=== PATIENT | female | born 1995 | race Asian ===

== ENCOUNTER 2016-09-26 10:36 | Emergency (ER) | payer OTHER ==
[2016-09-26 10:41] VITALS: RESP 16
[2016-09-26] MEDS ORDERED: PANTOPRAZOLE SODIUM 40 MG in NS 100 ML IV ONE (11:56)
[2016-09-26] MEDS ORDERED: ONDANSETRON 4 MG/2 ML VIAL IVP ONE (11:56)
[2016-09-26] MEDS ORDERED: NS 1,000 ML IV ONE (11:56)
[2016-09-26 12:07] LABS: % IMMATURE GRANULYOCYTES 0.5 % (0.0-1.1); ABSOLUTE IMMATURE GRANULOCYTES 0.03 10^3/uL (0.00-0.10); ADD DIFF? NO; ADD MORPH? NO; ADD SCAN? NO; ATYPICAL LYMPHOCYTE FLAG 20 (0-99); FRAGMENT RBC FLAG 0 (0-99); HEMATOCRIT 40.2 % (38.0-47.0); HEMOGLOBIN 12.8 g/dL (12.6-16.3); LEFT SHIFT FLG 0 (0-99); LIPEMIA HEMOLYSIS FLAG 80 (0-99); MEAN CELL HEMOGLOBIN CONCENTR. 31.8 g/dL (32.4-36.7); MEAN CELL VOLUME 78.5 fL (81.5-99.8); MEAN PLATELET VOLUME 9.9 fL (8.7-11.7); PLATELET CLUMPS FLAG 0 (0-99); PLATELET COUNT 223 10^3/uL (150-400); RED BLOOD CELL COUNT 5.12 10^6/uL (4.18-5.33)
[2016-09-26 12:18] LABS: ANION GAP 11 mEq/L (8-16); CALCIUM 9.5 mg/dL (8.5-10.4); CARBON DIOXIDE 22 mEq/l (22-31); CHLORIDE 107 mEq/L (97-110); CREATININE 0.6 mg/dL (0.6-1.0); GLOMERULAR FILTRATION RATE > 60; GLUCOSE 89 mg/dL (70-100); POTASSIUM 3.8 mEq/L (3.5-5.2); SODIUM 140 mEq/L (134-144)
--- NOTE | 2016-09-26 13:22 | EDPHY ---
H & P Time Seen by Provider: 09/26/16 11:44 HPI/ROS: CHIEF COMPLAINT: Vomiting, abnormal vaginal bleeding HISTORY OF PRESENT ILLNESS: 21-year-old female presents to the emergency department with multiple episodes of vomiting over last 2 days. She has had abnormal vaginal bleeding over the last 1 month. She has had mostly spotting throughout the month and then over last few days has had very heavy vaginal bleeding. She has always had irregular periods. No fevers or chills. No urinary symptoms. She is not sexually active. Denies . Denies chest pain or difficulty breathing. No diarrhea. No recent travel. No known ill contacts. REVIEW OF SYSTEMS: Constitutional: No fever, no chills. Eyes: No double or blurry vision. ENT: No sore throat. Respiratory: No cough, no shortness of breath. Cardiac: No chest pain. Gastrointestinal: Vomiting. No abdominal pain or diarrhea Genitourinary: No dysuria. Musculoskeletal: No neck or back pain. Skin: No rashes. Neurological: No headache. Past Medical/Surgical History: Dysfunctional uterine bleeding Social History: Single Smoking Status: Current every day smoker Physical Exam: General Appearance: Alert, no distress. Vital signs are normal. Eyes: Pupils equal and round. Extraocular motions are all intact. ENT: Mouth: Mucous membranes moist. Respiratory: No wheezing, rhonchi, or rales, lungs are clear to auscultation. Cardiovascular: Regular rate and rhythm. Gastrointestinal: Abdomen is soft and nontender, no masses, no rebound or guarding, bowel sounds normal. Genitourinary: Deferred Neurological: Alert and oriented x 3, cranial nerves II through XII grossly intact Skin: Warm and dry, no rashes. Musculoskeletal: Nontender to palpate along the cervical, thoracic or lumbar spine. Neck is supple. Extremities: Full range of motion and no peripheral edema. Psychiatric: Patient is oriented X 3, there is no agitation. Constitutional: Initial Vital Signs Temperature (C) 36.6 C 09/26/16 10:40 Heart Rate 72 09/26/16 10:40 Respiratory Rate 16 09/26/16 10:40 Blood Pressure 116/70 09/26/16 10:40 O2 Sat (%) 96 09/26/16 10:40 O2 Delivery Mode Room Air Allergies/Adverse Reactions: No Known Allergies Allergy (Unverified 09/26/16 10:41) Home Medications: Medication Instructions Recorded Ondansetron Odt [Zofran Odt] 4 mg PO Q4PRN PRN #5 tab 09/26/16 Medical Decision Making - Diagnostics Imaging Results: Imaging Impressions Pelvic/Renal Ultrasound 09/26/16 11:57 Impression: 1. No adnexal masses or ovarian torsion. 2. No ascites. 3. Anteverted uterus with endometrium not well visualized. However, no evidence of uterine leiomyomata. Findings and recommendations discussed with Emergency Department physician, Emma Joseph PA-C at 1252 hour, 09/26/2016. Final report concurs with initial preliminary interpretation. Imaging: Discussed imaging studies w/ physically impaired teacher Radiologist ED Course/Re-evaluation: Patient had IV established and was given IV normal saline. Laboratory studies including CBC and chemistries were normal. Pelvic ultrasound essentially normal. Patient was given IV Zofran. Feeling much better. Comfortable being discharged home. She was given OBGYN referral. Instructed to return to the emergency department if she developed recurring vomiting, recurring heavy vaginal bleeding, or if she seems worse in any way. She was comfortable with this plan. Differential Diagnosis: Including but not limited to gastritis, GERD, peptic ulcer disease, dysfunctional uterine bleeding, ectopic , intrauterine , ovarian torsion - Data Points Laboratory Results: Laboratory Results 09/26/16 11:59 09/26/16 11:59 09/26/16 09/26/16 11:59 11:59 WBC 6.32 10^3/uL 10^3/uL (3.80-9.50) RBC 5.12 10^6/uL 10^6/uL (4.18-5.33) Hgb 12.8 g/dL g/dL (12.6-16.3) Hct 40.2 % % (38.0-47.0) MCV 78.5 fL L fL (81.5-99.8) MCH 25.0 pg L pg (27.9-34.1) MCHC 31.8 g/dL L g/dL (32.4-36.7) RDW 14.0 % % (11.5-15.2) Plt Count 223 10^3/uL 10^3/uL (150-400) MPV 9.9 fL fL (8.7-11.7) Neut % (Auto) 59.4 % % (39.3-74.2) Lymph % (Auto) 30.7 % % (15.0-45.0) [place] % (Auto) 7.4 % % (4.5-13.0) Eos % (Auto) 1.4 % % (0.6-7.6) Baso % (Auto) 0.6 % % (0.3-1.7) Nucleat RBC Rel Count 0.0 % % (0.0-0.2) Absolute Neuts (auto) 3.75 10^3/uL 10^3/uL (1.70-6.50) Absolute Lymphs (auto) 1.94 10^3/uL 10^3/uL (1.00-3.00) Absolute Monos (auto) 0.47 10^3/uL 10^3/uL (0.30-0.80) Absolute Eos (auto) 0.09 10^3/uL 10^3/uL (0.03-0.40) Absolute Basos (auto) 0.04 10^3/uL 10^3/uL (0.02-0.10) Absolute Nucleated RBC 0.00 10^3/uL 10^3/uL (0-0.01) Immature Gran % 0.5 % % (0.0-1.1) Immature Gran # 0.03 10^3/uL 10^3/uL (0.00-0.10) Sodium 140 mEq/L mEq/L (134-144) Potassium 3.8 mEq/L mEq/L (3.5-5.2) Chloride 107 mEq/L mEq/L (97-110) Carbon Dioxide 22 mEq/l mEq/l (22-31) Anion Gap 11 mEq/L mEq/L (8-16) BUN 12 mg/dL mg/dL (7-23) Creatinine 0.6 mg/dL mg/dL (0.6-1.0) Estimated GFR > 60 Glucose 89 mg/dL mg/dL (70-100) Calcium 9.5 mg/dL mg/dL (8.5-10.4) Medications Given: Discontinued Medications Sodium Chloride (Ns) 1,000 mls @ 0 mls/hr IV ONCE ONE PRN Reason: Wide Open Stop: 09/26/16 11:57 Last Admin: 09/26/16 12:11 Dose: 1,000 mls Pantoprazole Sodium 40 mg/ (Sodium Chloride) 100 mls @ 200 mls/hr IV EDNOW ONE Stop: 09/26/16 12:25 Last Admin: 09/26/16 12:12 Dose: 100 mls Ondansetron HCl (Zofran) 4 mg IVP EDNOW ONE Stop: 09/26/16 11:57 Last Admin: 09/26/16 12:11 Dose: 4 mg Departure - Departure Disposition: Home, Routine, Self-Care Clinical Impression: Dysfunctional uterine bleeding Vomiting Qualifiers: Vomiting type: unspecified Vomiting Intractability: non-intractable Nausea presence: with nausea Qualified Code(s): R11.2 - Nausea with vomiting, unspecified Condition: Good Instructions: Dysfunctional Uterine Bleeding (ED), Acute Nausea and Vomiting ( ED) Additional Instructions: Clear liquids and slowly advance diet as tolerated. Follow up with OBGYN regarding abnormal vaginal bleeding. Abdominal Pain: Return to the Emergency Department immediately for increasing pain, fever, vomiting, or if not completely better in 8-12 hours. Referrals: Jennifer Carter DO [Doctor of Osteopathy] - 2-3 days, call for appt. (OBGYN on- call) Stand Alone Forms: School Excuse Prescriptions: Ondansetron Odt [Zofran Odt] 4 mg PO Q4PRN PRN #5 tab PRN Reason: Nausea/Vomiting, Use 1st
[2016-09-26 13:50] VITALS: BP 110/73; PULSE 70; TEMP 98.2; O2SAT 97
== END 2016-09-26 13:47 | disposition home or self-care (01) ==
DX: N93.8 Other specified abnormal uterine and vaginal bleeding (principal); R11.2 Nausea with vomiting, unspecified; F17.200 Nicotine dependence, unspecified, uncomplicated
CPT/HCPCS: 96365; J2405

== ENCOUNTER 2016-11-23 16:45 | Emergency (ER) | payer OTHER ==
[2016-11-23 16:51] VITALS: RESP 18; TEMP 98.1
--- NOTE | 2016-11-23 17:33 | EDPHY ---
H & P Time Seen by Provider: 11/23/16 17:04 HPI/ROS: Chief complaint: Left ankle injury History of present illness: This is a 21-year-old female who presents to the emergency department for left ankle injury. Patient states approximately an hour prior to arrival she twisted her left ankle. Since then she has had swelling to the outer aspect of it. Makes it difficult to move and ambulate. She denies associated signs or symptoms including no open wounds, no abnormal coolness or paresthesias in the left lower extremity. No report of pain in the foot, lower leg or knee. Smoking Status: Current every day smoker Physical Exam: General appearance: Alert, nontoxic Musculoskeletal: There is edema to the lateral aspect of the left ankle just anterior to the lateral malleolus. There is no tenderness over the bony aspects of the ankle. The Achilles tendon is is nontender, no defects. The foot, lower leg and knee are nontender. She is moving the digits of the foot and the knee well. Vascular exam: Normal pulses and capillary refill in the foot Neurologic exam: The patient has normal sensation and motor function distal to the injury. Constitutional: Initial Vital Signs Temperature (C) 36.7 C 11/23/16 16:46 Heart Rate 88 11/23/16 16:46 Respiratory Rate 18 11/23/16 16:46 Blood Pressure 113/90 H 11/23/16 16:46 O2 Sat (%) 97 11/23/16 16:46 O2 Delivery Mode Room Air Allergies/Adverse Reactions: No Known Allergies Allergy (Verified 11/23/16 16:46) Home Medications: Medication Instructions Recorded NK [No Known Home Meds] 11/23/16 MDM/Departure - MDM Imaging Results: Imaging Impressions Ankle X-Ray 11/23/16 16:52 Impression: Negative left ankle series. Imaging: I viewed and interpreted images myself Procedures: Procedure: Splint placement. An Len wrap and stirrup splint was applied. After application of the splint I returned and re-examined the patient. The splint was adequately immobilizing the joint and distal to the splint the patient's circulation and sensation was intact. Patient given crutches ED Course/Re-evaluation: Patient seen under the supervision of my secondary supervising physician Dr. Montana Jimenes. Patient presents for a left ankle injury. The left lower extremity is neurovascularly intact. X-rays negative for fracture. Likely sprain/strain. She is placed in an Len wrap, stirrup splint and given crutches. Home care is discussed. She is referred to Orthopedics for recheck. Return precautions are given. Differential Diagnosis: Included but not limited to contusion, sprain, strain, bony fracture, joint dislocation - Depart Disposition: Home, Routine, Self-Care Clinical Impression: Left ankle sprain Qualifiers: Encounter type: initial encounter Involved ligament of ankle: unspecified ligament Qualified Code(s): S93.402A - Sprain of unspecified ligament of left ankle, initial encounter Condition: Good Instructions: Ankle Sprain (ED) Additional Instructions: Follow-up with student health or orthopedics for continued evaluation and care Use ibuprofen 600 mg 3 times a day for the next 2-3 days for symptom control If symptoms worsen or new symptoms develop return to the emergency room for recheck Referrals: NONE *PRIMARY CARE P,. [Primary Care Provider] - As per Instructions [facility] [Cl[facility]] - As per Instructions Kuldip Bhagat MD [Medical Doctor] - As per Instructions
[2016-11-23 17:59] VITALS: BP 110/80; PULSE 80; O2SAT 96
== END 2016-11-23 17:58 | disposition home or self-care (01) ==
DX: S93.402A Sprain of unspecified ligament of left ankle, initial encounter (principal); F17.200 Nicotine dependence, unspecified, uncomplicated; X58.XXXA Exposure to other specified factors, initial encounter; Y99.8 Other external cause status
CPT/HCPCS: L4350

== ENCOUNTER 2017-04-25 12:32 | Emergency (ER) | payer OTHER ==
[2017-04-25 12:38] VITALS: RESP 16; TEMP 98.2
[2017-04-25] MEDS ORDERED: ONDANSETRON 4 MG/2 ML VIAL IVP ONE (13:05)
[2017-04-25] MEDS ORDERED: NS 1,000 ML IV ONE (13:05)
--- NOTE | 2017-04-25 13:16 | EDPHY ---
H & P Time Seen by Provider: 04/25/17 12:58 HPI/ROS: CHIEF COMPLAINT: Abdominal pain HISTORY OF PRESENT ILLNESS: The patient is a 21-year-old female who presents emergency department with epigastric abdominal pain. Patient states "I think I have food poisoning. "The patient states that she ate at a restaurant last evening had salad, Nepali fries and chicken. This morning she developed epigastric abdominal pain with nausea vomiting. This is been nonbloody. She has also had numerous episodes of diarrhea. Her pain does not radiate. She describes it as moderate. No fevers or chills. No dysuria frequency. No back pain. REVIEW OF SYSTEMS: My complete review of systems is negative except as mentioned in the HPI. Past Medical/Surgical History: Polycystic ovarian disease Smoking Status: Current some day smoker Physical Exam: Vitals noted GENERAL: Well-appearing, in no acute distress, alert. HEENT: Eyes normal to inspection, normal pharynx, no signs of dehydration. NECK: No thyromegaly, no lymphadenopathy, supple. RESPIRATORY: Clear to auscultation bilaterally, no rales, rhonchi or wheezing. CVS: Regular rate and rhythm, no rubs, murmurs, or gallops. ABDOMEN: Soft, mild epigastric tenderness to palpation with no rebound or guarding, nondistended, no organomegaly. BACK: Normal to inspection, no CVA tenderness. SKIN: Normal color, no rash, warm, dry. No pallor. EXTREMITIES: No pedal edema, no calf tenderness, no Homans sign or cords, no joint swelling. NEURO/PSYCH: Alert and oriented x3, normal mood and affect, normal motor sensory exam. No obvious cranial nerve deficit. Constitutional: Initial Vital Signs Temperature (C) 36.8 C 04/25/17 12:36 Heart Rate 98 04/25/17 12:36 Respiratory Rate 16 04/25/17 12:36 Blood Pressure 141/94 H 04/25/17 12:36 O2 Sat (%) 97 04/25/17 12:36 O2 Delivery Mode Room Air Allergies/Adverse Reactions: No Known Allergies Allergy (Verified 04/25/17 12:36) Home Medications: Medication Instructions Recorded Ondansetron Odt [Zofran Odt 4 mg 4 mg PO Q4PRN PRN #7 tab 04/25/17 (*)] Medical Decision Making ED Course/Re-evaluation: In the emergency department I discussed possible etiologies with the patient. I answered all her questions. An IV was placed. Laboratory studies were obtained. Patient was given Zofran 4 mg IV and Pepcid 20 mg IV for her pain and nausea. The patient's white count was normal. Patient's hematocrit was normal. Patient' s Chem panel was normal except for a slightly elevated anion gap at 18. CO2 was low at 17. LFTs are normal. Lipase is normal. 220: I rechecked the patient. She states she is feeling much better. Abdominal pain is resolved. Her abdomen is soft, nontender nondistended. She has no signs of distress. She has had no further episodes of emesis in the emergency department. Patient feels comfortable with discharge. She will return if she worsens. She was given warning signs prior to leaving. She will be discharged with a prescription of Zofran. Differential Diagnosis: My differential includes but is not limited to pancreatitis, cholecystitis, small-bowel obstruction, perforation, peptic ulcer disease, food poisoning, intussusception, volvulus, viral illness - Data Points Laboratory Results: Laboratory Results 04/25/17 13:05 04/25/17 13:05 04/25/17 04/25/17 04/25/17 13:55 13:05 13:05 WBC RBC Hgb Hct MCV MCH MCHC RDW Plt Count MPV Neut % (Auto) Lymph % (Auto) [place] % (Auto) Eos % (Auto) Baso % (Auto) Nucleat RBC Rel Count Absolute Neuts (auto) Absolute Lymphs (auto) Absolute Monos (auto) Absolute Eos (auto) Absolute Basos (auto) Absolute Nucleated RBC Immature Gran % Immature Gran # PT 13.6 SEC SEC (12.0-15.0) INR 1.02 (0.83-1.16) APTT 28.8 SEC SEC (23.0-38.0) Sodium 142 mEq/L mEq/L (135-145) Potassium 4.4 mEq/L mEq/L (3.5-5.2) Chloride 105 mEq/L mEq/L (97-110) Carbon Dioxide 19 mEq/l L mEq/l (22-31) Anion Gap 18 mEq/L H mEq/L (8-16) BUN 12 mg/dL mg/dL (7-23) Creatinine 0.7 mg/dL mg/dL (0.6-1.0) Estimated GFR > 60 Glucose 89 mg/dL mg/dL (70-100) Calcium 9.6 mg/dL mg/dL (8.5-10.4) Total Bilirubin 0.3 mg/dL mg/dL (0.1-1.4) Conjugated Bilirubin 0.2 mg/dL mg/dL (0.0-0.5) Unconjugated Bilirubin 0.1 mg/dL mg/dL (0.0-1.1) AST 23 IU/L IU/L (14-46) ALT 38 IU/L IU/L (9-52) Alkaline Phosphatase 70 IU/L IU/L (38-126) Total Protein 7.7 g/dL g/dL (6.3-8.2) Albumin 4.6 g/dL g/dL (3.5-5.0) Lipase 101 IU/L IU/L (23-300) Urine Color YELLOW Urine Appearance CLEAR Urine pH 5.0 (5.0-7.5) Ur Specific [place] 1.024 (1.002-1.030) Urine Protein 1+ H (NEGATIVE) Urine Ketones NEGATIVE (NEGATIVE) Urine Blood NEGATIVE (NEGATIVE) Urine Nitrate NEGATIVE (NEGATIVE) Urine Bilirubin NEGATIVE (NEGATIVE) Urine Urobilinogen NEGATIVE EU EU (0.2-1.0) Ur Leukocyte Esterase NEGATIVE (NEGATIVE) Urine RBC 1-3 /hpf /hpf (0-3) Urine WBC 1-3 /hpf /hpf (0-3) Ur Epithelial Cells TRACE /lpf /lpf (NONE-1+) Urine Mucus TRACE /lpf /lpf (NONE-1+) Urine Glucose NEGATIVE (NEGATIVE) 04/25/17 13:05 WBC 4.54 10^3/uL 10^3/uL (3.80-9.50) RBC 5.90 10^6/uL H 10^6/uL (4.18-5.33) Hgb 14.9 g/dL g/dL (12.6-16.3) Hct 45.9 % % (38.0-47.0) MCV 77.8 fL L fL (81.5-99.8) MCH 25.3 pg L pg (27.9-34.1) MCHC 32.5 g/dL g/dL (32.4-36.7) RDW 14.3 % % (11.5-15.2) Plt Count 211 10^3/uL 10^3/uL (150-400) MPV 10.1 fL fL (8.7-11.7) Neut % (Auto) 66.8 % % (39.3-74.2) Lymph % (Auto) 24.0 % % (15.0-45.0) [place] % (Auto) 7.0 % % (4.5-13.0) Eos % (Auto) 1.3 % % (0.6-7.6) Baso % (Auto) 0.7 % % (0.3-1.7) Nucleat RBC Rel Count 0.0 % % (0.0-0.2) Absolute Neuts (auto) 3.03 10^3/uL 10^3/uL (1.70-6.50) Absolute Lymphs (auto) 1.09 10^3/uL 10^3/uL (1.00-3.00) Absolute Monos (auto) 0.32 10^3/uL 10^3/uL (0.30-0.80) Absolute Eos (auto) 0.06 10^3/uL 10^3/uL (0.03-0.40) Absolute Basos (auto) 0.03 10^3/uL 10^3/uL (0.02-0.10) Absolute Nucleated RBC 0.00 10^3/uL 10^3/uL (0-0.01) Immature Gran % 0.2 % % (0.0-1.1) Immature Gran # 0.01 10^3/uL 10^3/uL (0.00-0.10) PT INR APTT Sodium Potassium Chloride Carbon Dioxide Anion Gap BUN Creatinine Estimated GFR Glucose Calcium Total Bilirubin Conjugated Bilirubin Unconjugated Bilirubin AST ALT Alkaline Phosphatase Total Protein Albumin Lipase Urine Color Urine Appearance Urine pH Ur Specific [place] Urine Protein Urine Ketones Urine Blood Urine Nitrate Urine Bilirubin Urine Urobilinogen Ur Leukocyte Esterase Urine RBC Urine WBC Ur Epithelial Cells Urine Mucus Urine Glucose Medications Given: Discontinued Medications Sodium Chloride (Ns) 1,000 mls @ 0 mls/hr IV ONCE ONE PRN Reason: Wide Open Stop: 04/25/17 13:06 Last Admin: 02/01/18 13:12 Dose: 1,000 mls Famotidine/Sodium Chloride (Pepcid 20 Mg (Premix)) 50 mls @ 200 mls/hr IV EDNOW ONE Stop: 04/25/17 13:33 Last Admin: 04/25/17 13:21 Dose: 50 mls Ondansetron HCl (Zofran) 4 mg IVP EDNOW ONE Stop: 04/25/17 13:06 Last Admin: 04/25/17 13:12 Dose: 4 mg Departure - Departure Disposition: Home, Routine, Self-Care Clinical Impression: Abdominal pain Qualifiers: Abdominal location: epigastric Qualified Code(s): R10.13 - Epigastric pain Condition: Good Instructions: Abdominal Pain (ED) Additional Instructions: Return with increasing pain, repeated vomiting, persistent fever or any other concerns. Slowly advance your diet. Referrals: Phi Bo MD [Medical Doctor] - 5-7 days, call for appt.
[2017-04-25] MEDS ORDERED: FAMOTIDINE 20 MG/NACL 50 ML IV ONE (13:19)
[2017-04-25 13:24] LABS: PLATELET COUNT 211 10^3/uL (150-400)
[2017-04-25 13:32] LABS: INR 1.02 (0.83-1.16); PROTIME(PATIENT) 13.6 SEC (12.0-15.0)
[2017-04-25 14:35] VITALS: BP 107/63; PULSE 87; O2SAT 96
== END 2017-04-25 14:53 | disposition home or self-care (01) ==
DX: R10.13 Epigastric pain (principal); F17.200 Nicotine dependence, unspecified, uncomplicated; R11.2 Nausea with vomiting, unspecified
CPT/HCPCS: 96365; J2405